=== PATIENT | male | born 1940 | race Caucasian/White ===

== ENCOUNTER → 2017-03-29 | Outpatient (CLI) | payer MEDICARE, BC ==
[~2017-03-29] MED LIST: ACET500 PO; ACETASOL; AMLO10 PO; AMLO5; AMYLIPPROE PO; ARTTEAOPSO RIGHTEYE; ASPI81EC; ASPI81EC PO; Acidophilus La100 GM PO; BIOTIN; Bacid1 EACH PO; CYCL10 PO; DULO30; DULO60 PO; EZET10; FISH1000 PO; FLUT.05NI; GABA300; GABA600 PO; GABA800 PO; HYDACE10B PO; HYDACE5 PO; HYDCHL25; IBUP200 PO; IBUP400 PO; INSUASPI; INSUASPI SC; INSUASPI SUBQ; INSULANI; INSULANI SC; INSULANI SUBQ; INSULANPEN SC; KETO5OP BOTHEYES; LEVFLO500 PO; LISI20; LISI20 PO; LISI5 PO; MECL12.5 PO; MECL25 PO; MEGA RED; META800 PO; METF500; METF500 PO; METF500C PO; METO25ER; METO50 PO; METR500 PO; MOME.1TC TOP; NAPR250 PO; NITR.4SL SL; Norco 5-325 Ta1 EACH PO; OLOP.1OPSO OD; OMEG1CAP30 PO; OMEP20ER PO; POLY500 PO; POTA10T PO; PSEU120ER; ROSU5 PO; SPIHYD PO; SPIR25 PO; TAMS.4ER PO; TERA5 PO; TORSE20 PO; TURMERIC500 MG PO
== END ==
LOC: LAB SHORT 16:54 → LAB 16:54
DX: D48.5 Neoplasm of uncertain behavior of skin (principal)
CPT/HCPCS: 88305

== ENCOUNTER 2017-06-14 23:25 | Emergency (ER) | payer OTHER, MEDICARE, BC ==
[~2017-06-14] VITALS: Ht 170.2 cm; Wt 97.5 kg
== END 2017-06-15 00:40 | disposition home or self-care (01) ==
LOC: ER 23:25
DX: M76.811 Anterior tibial syndrome, right leg (principal); I10 Essential (primary) hypertension; E11.9 Type 2 diabetes mellitus without complications; E78.00 Pure hypercholesterolemia, unspecified; I25.10 Atherosclerotic heart disease of native coronary artery without angina pectoris; Z88.7 Allergy status to serum and vaccine; Z79.899 Other long term (current) drug therapy; Z79.82 Long term (current) use of aspirin; Z79.4 Long term (current) use of insulin; Z87.891 Personal history of nicotine dependence
CPT/HCPCS: 96372; 99284; J1885; J3010

== ENCOUNTER 2018-05-17 05:07 | Observation (INO) | payer MEDICARE, BC ==
[~2018-05-17] VITALS: Ht 172.7 cm; Wt 104.3 kg
[~2018-05-17 05:07] MED LIST changes: +ALLERGY EYE DROP5 ML BOTHEYES; +Aspirin EC81 MG PO; -INSUASPI SUBQ; -LISI5 PO; +Novolog Fl100 UNIT/1 SC; +Prinivil10 MG PO
[2018-05-17 05:49] LABS: BASOPHILS ABSOLUTE AUTO 0.03 K/mm3 (0.00-0.23); BASOPHILS PERCENT AUTO 0 % (0-2); EOSINOPHILS ABSOLUTE AUTO 0.39 K/mm3 (0.00-0.68); EOSINOPHILS PERCENT AUTO 5 % (0-6); Hematocrit 33.6 % (37.0-53.0); Hemoglobin 10.4 g/dL (13.5-17.5); IMMATURE GRAN ABSOLUTE AUTO 0.04 K/mm3 (0.00-0.10); IMMATURE GRAN PERCENT AUTO 1 % (0-1); LYMPHOCYTES ABSOLUTE AUTO 1.65 K/mm3 (0.84-5.20); LYMPHOCYTES PERCENT AUTO 19 % (21-46); MONOCYTES ABSOLUTE AUTO 0.61 K/mm3 (0.16-1.47); MONOCYTES PERCENT AUTO 7 % (4-13); Mean Corpuscular HGB 27.7 pg (26.0-34.0); Mean Corpuscular Volume 89 fL (80-100); Mean Platelet Volume 11.8 fL (9.1-12.4); NEUTROPHILS ABSOLUTE AUTO 5.95 K/mm3 (1.96-9.15); NEUTROPHILS PERCENT AUTO 69 % (41-73); Platelet Count 168 K/mm3 (150-400); RDW Coefficient Variation 14.7 % (11.7-14.2); RDW Standard Deviation 48.2 fL (35.1-46.3); Red Blood Cell Count 3.76 M/mm3 (4.30-5.90); White Blood Cell Count 8.67 K/mm3 (4.00-11.30)
[2018-05-17 06:05] LABS: Alanine Aminotransfer (ALT/SGP 22 U/L (12-78); Alk Phos 93 U/L (50-136); Anion Gap 5 mmol/L (6-16); Aspartate Aminotrans (AST/SGOT 13 U/L (12-37); Bilirubin, Total 0.3 mg/dL (0.1-1.0); Blood Urea Nitrogen 32 mg/dL (8-24); Bun/Creatinine Ratio 42.6 (12.0-20.0); CO2, Blood 30 mmol/L (21-32); Calcium, Blood 8.1 mg/dL (8.5-10.1); Chloride, Blood 109 mmol/L (98-108); Creatinine, Blood 0.75 mg/dL (0.60-1.20); Glomerular Filtration Rate >60 (60-); Glucose, Blood 189 mg/dL (70-99); Potassium, Blood 3.9 mmol/L (3.5-5.5); Sodium, Blood 144 mmol/L (136-145)
[2018-05-17 06:49] LABS: International Normalized Ratio 1.06; Prothrombin Time Results 11.2 Sec (9.7-11.5)
[2018-05-17 12:45] LABS: Hematocrit 31.5 % (37.0-53.0); Hemoglobin 9.8 g/dL (13.5-17.5)
--- NOTE | 2018-05-17 13:26 | NUR ---
INTO [facility] VIA [employer]. PT REPORTS 6/10 GENERALIZED PAIN. HISTORY AND ALLERGIES REVIEWED. NPO STATUS CONFIRMED. LUNGS CLEAR TO AUSCULTATION. SATS>90% ON RA.
--- NOTE | 2018-05-17 13:34 | NUR ---
05/17/18 1334 Joel Bear History, Chart, Medications and Allergies reviewed before start of procedure.MONITOR INTACT WITH CONTINUOUS PULSE OXIMETRY AND INTERMITTENT BP.3-LEAD EKG REVIEWED WITH PHYSICIAN PRIOR TO START OF PROCEDURE.O2 VIA N/C INTACT THROUGHOUT SEDATION/PROCEDURE. Patient confirms NPO status and agrees with scheduled surgery.See Anesthesia record.
--- NOTE | 2018-05-17 17:31 | NUR ---
SHIFT SUMMARY PATIENT A&O X4, INDEPENDENT TO THE BATHROOM. DENIES ANY PAIN, SOB, OR NAUSEA. ARRIVED AT 1446 FROM DAY SURG. VSS. POST OP VS STARTED. IS AT THE BEDSIDE. NO ACUTE CHANGES THIS SHIFT. RN WILL CONTINUE TO MONITOR.
[2018-05-17 19:00] LABS: Hematocrit 30.7 % (37.0-53.0); Hemoglobin 9.6 g/dL (13.5-17.5)
[2018-05-17] MEDS ORDERED: Motion Sickness25 M5 PO (20:42)
[2018-05-17] MEDS ORDERED: TAMS.4ER PO (20:44)
[2018-05-17] MEDS ORDERED: CHOL10002 PO (21:03)
[2018-05-17] MEDS ORDERED: ADCIRCA20 MG PO (21:07)
[2018-05-17] MEDS ORDERED: Flunisolide25 ML (21:09)
[2018-05-17] MEDS ORDERED: Aquaphor Healin50 GM TOP (21:11)
[2018-05-17] MEDS ORDERED: [UNRECOGNIZED DRUG - SUPPLY] BOTHEYES (21:14)
--- NOTE | 2018-05-17 21:25 | NUR ---
2030 PT UP AMBULATED WITH STAFF X 1 STANDBY ASSIST AROUND ENTIRE LOOP OF HALLWAY, GAIT SLOW AND STEADY. PT DENIES PAIN OR VERTIGO.
[2018-05-18 00:47] LABS: Hematocrit 29.8 % (37.0-53.0); Hemoglobin 9.5 g/dL (13.5-17.5)
--- NOTE | 2018-05-18 04:01 | NUR ---
77 Y/O MALE RESTING COMFORTABLY IN BED WITH SPENDING NIGHT SLEEPING ON BEDSIDE SOFA (LINEN, BLANKET AND PILLOW PROVIDED BY STAFF). PT HAD NO STOOLS DURING THIS SHIFT. PT DENIES PAIN OR NAUSEA. PTS BED IN LOW POSITION WITH CALL LIGHT AT SIDE.
[2018-05-18 07:39] LABS: BASOPHILS ABSOLUTE AUTO 0.02 K/mm3 (0.00-0.23); BASOPHILS PERCENT AUTO 0 % (0-2); EOSINOPHILS ABSOLUTE AUTO 0.25 K/mm3 (0.00-0.68); EOSINOPHILS PERCENT AUTO 3 % (0-6); Hematocrit 29.2 % (37.0-53.0); Hemoglobin 9.2 g/dL (13.5-17.5); Hemoglobin 9.3 g/dL (13.5-17.5); IMMATURE GRAN ABSOLUTE AUTO 0.04 K/mm3 (0.00-0.10); IMMATURE GRAN PERCENT AUTO 1 % (0-1); LYMPHOCYTES ABSOLUTE AUTO 2.31 K/mm3 (0.84-5.20); LYMPHOCYTES PERCENT AUTO 29 % (21-46); MONOCYTES ABSOLUTE AUTO 0.57 K/mm3 (0.16-1.47); MONOCYTES PERCENT AUTO 7 % (4-13); Mean Corpuscular HGB 28.7 pg (26.0-34.0); Mean Corpuscular HGB Conc 31.8 g/dL (31.5-36.5); Mean Corpuscular Volume 90 fL (80-100); Mean Platelet Volume 11.6 fL (9.1-12.4); NEUTROPHILS ABSOLUTE AUTO 4.68 K/mm3 (1.96-9.15); NEUTROPHILS PERCENT AUTO 59 % (41-73); Platelet Count 158 K/mm3 (150-400); RDW Coefficient Variation 14.7 % (11.7-14.2); RDW Standard Deviation 48.7 fL (35.1-46.3); Red Blood Cell Count 3.24 M/mm3 (4.30-5.90); White Blood Cell Count 7.87 K/mm3 (4.00-11.30)
[2018-05-18 12:49] LABS: Hematocrit 31.3 % (37.0-53.0); Hemoglobin 9.6 g/dL (13.5-17.5)
[2018-05-18] MEDS ORDERED: ACIDOPHILUS-PE1 EACH PO (13:58)
[2018-05-18] MEDS ORDERED: OMEPRAZOLE MAGN20 MG PO (14:02)
--- NOTE | 2018-05-18 15:37 | NUR ---
DISCHARGE SUMMARY PATIENT A&O X4. INDEPENDENT IN THE ROOM. DISCHARGE INFORMATION REVIEWED. MEDICATIONS FAXED TO [facility]. IV D/C, WNL. TOOL SETTER APPRENTICE ESCORTED PATIENT OUT BY WHEELCHAIR. ALL BELONGINGS IN HAND. FAMILY AT HIS SIDE.
== END 2018-05-18 15:34 | disposition home or self-care (01) ==
LOC: ER 05:07 → ERHOLD 05:08 → MEDS 05:08 → ENPENDDIS 05-18 13:57 → MEDS 05-18 15:34
PROVIDERS: Emergency Medicine; Internal Medicine; Internal Medicine Gastroenterology; ADMIT Hospitalist
PROC: 0DJ08ZZ Inspection of Upper Intestinal Tract, Via Natural or Artificial Opening Endoscopic (ICD-10-PCS; principal; 2018-05-17 13:45)
DX: K29.70 Gastritis, unspecified, without bleeding (principal); K20.9 Esophagitis, unspecified; K29.80 Duodenitis without bleeding; K25.9 Gastric ulcer, unspecified as acute or chronic, without hemorrhage or perforation; K26.9 Duodenal ulcer, unspecified as acute or chronic, without hemorrhage or perforation; I11.0 Hypertensive heart disease with heart failure; I50.32 Chronic diastolic (congestive) heart failure; E11.9 Type 2 diabetes mellitus without complications; I25.10 Atherosclerotic heart disease of native coronary artery without angina pectoris; F32.9 Major depressive disorder, single episode, unspecified; G47.33 Obstructive sleep apnea (adult) (pediatric); E66.9 Obesity, unspecified; Z87.891 Personal history of nicotine dependence; Z88.7 Allergy status to serum and vaccine; Z79.899 Other long term (current) drug therapy; Z79.82 Long term (current) use of aspirin; Z79.4 Long term (current) use of insulin; Z68.35 Body mass index [BMI] 35.0-35.9, adult
CPT/HCPCS: 36415; 36416; 80053; 82947; 83690; 85014; 85018; 85025; 85610; 86850; 86900; 86901; 93005; 93010; 96361; 96365; 96366; 96376; 99285-25; C9113; G0378; J1815; J7030; J7120

== ENCOUNTER 2019-04-27 17:20 | Emergency (ER) | payer MEDICARE, BC ==
[~2019-04-27] VITALS: Ht 170.2 cm; Wt 93.0 kg
[~2019-04-27 17:20] MED LIST changes: +ACIDOPHILUS-PE1 EACH PO; +ADCIRCA20 MG PO; +Aquaphor Healin50 GM TOP; +CHOL10002 PO; +Flunisolide25 ML; +Motion Sickness25 M5 PO; +OMEPRAZOLE MAGN20 MG PO; +[UNRECOGNIZED DRUG - SUPPLY] BOTHEYES
== END 2019-04-27 18:12 | disposition home or self-care (01) ==
LOC: ER 17:20
DX: Z46.6 Encounter for fitting and adjustment of urinary device (principal); I10 Essential (primary) hypertension; E11.9 Type 2 diabetes mellitus without complications; E78.00 Pure hypercholesterolemia, unspecified; Z79.899 Other long term (current) drug therapy; Z87.891 Personal history of nicotine dependence
CPT/HCPCS: 99282

== ENCOUNTER 2020-04-10 12:27 | Observation (INO) | payer OTHER, MEDICARE ==
[~2020-04-10] VITALS: Ht 170.2 cm; Wt 92.2 kg
[2020-04-10 13:35] LABS: BASOPHILS ABSOLUTE AUTO 0.02 K/mm3 (0.00-0.23); BASOPHILS PERCENT AUTO 0 % (0-2); EOSINOPHILS ABSOLUTE AUTO 0.27 K/mm3 (0.00-0.68); EOSINOPHILS PERCENT AUTO 4 % (0-6); Hematocrit 47.2 % (37.0-53.0); Hemoglobin 15.5 g/dL (13.5-17.5); IMMATURE GRAN ABSOLUTE AUTO 0.03 K/mm3 (0.00-0.10); IMMATURE GRAN PERCENT AUTO 0 % (0-1); LYMPHOCYTES PERCENT AUTO 15 % (21-46); MONOCYTES ABSOLUTE AUTO 0.74 K/mm3 (0.16-1.47); MONOCYTES PERCENT AUTO 10 % (4-13); Mean Corpuscular HGB 29.3 pg (26.0-34.0); Mean Corpuscular HGB Conc 32.8 g/dL (31.5-36.5); Mean Corpuscular Volume 89 fL (80-100); NEUTROPHILS ABSOLUTE AUTO 5.22 K/mm3 (1.96-9.15); NEUTROPHILS PERCENT AUTO 71 % (41-73); Platelet Count 163 K/mm3 (150-400); RDW Coefficient Variation 13.4 % (11.7-14.2); RDW Standard Deviation 44.4 fL (35.1-46.3); Red Blood Cell Count 5.29 M/mm3 (4.30-5.90); White Blood Cell Count 7.38 K/mm3 (4.00-11.30)
[2020-04-10] MEDS ORDERED: FURO20 PO ×2 (14:27→15:39)
[2020-04-10 14:41] LABS: Base Excess Venous 7.4 mmol/L; Bicarbonate Venous 28.4 mmol/L (24.0-30.0); PCO2 Venous 59.1 mmHg (38-42); PO2 Venous 32.3 mmHg (38-42); pH Blood Venous 7.36 (7.34-7.37)
[2020-04-10 14:48] LABS: Alanine Aminotransfer (ALT/SGP 21 U/L (12-78); Albumin, Blood 3.2 g/dL (3.4-5.0); Alk Phos 136 U/L (50-136); Anion Gap 3 mmol/L (6-16); Aspartate Aminotrans (AST/SGOT 14 U/L (12-37); Bilirubin, Total 0.3 mg/dL (0.1-1.0); Blood Urea Nitrogen 10 mg/dL (8-24); Bun/Creatinine Ratio 12.4 (12.0-20.0); CO2, Blood 31 mmol/L (21-32); Calcium, Blood 8.1 mg/dL (8.5-10.1); Chloride, Blood 107 mmol/L (98-108); Creatinine, Blood 0.81 mg/dL (0.60-1.20); Globulin, Blood 3.1 g/dL (2.2-4.0); Glomerular Filtration Rate >60 (60-); Glucose, Blood 90 mg/dL (70-99); Potassium, Blood 3.6 mmol/L (3.5-5.5); Sodium, Blood 141 mmol/L (136-145); Total Protein, Blood 6.3 g/dL (6.4-8.2); Troponin I <0.015 ng/mL (0.000-0.040)
[2020-04-10] MEDS ORDERED: DULO60 PO (15:34)
[2020-04-10] MEDS ORDERED: AMLO10 PO (15:34)
[2020-04-10] MEDS ORDERED: BASAGLAR K100 UNIT/1 SC (15:35)
[2020-04-10] MEDS ORDERED: NOVOLOG FL100 UNIT/3 SC (15:35)
[2020-04-10] MEDS ORDERED: GABAPENTIN600 MG PO (15:35)
[2020-04-10] MEDS ORDERED: ARTIFICIAL TEAR15 M2 BOTHEYES (15:36)
[2020-04-10] MEDS ORDERED: METF500 PO (15:36)
[2020-04-10] MEDS ORDERED: OMEP20ER PO (15:36)
[2020-04-10] MEDS ORDERED: Prinivil10 MG PO (15:36)
[2020-04-10] MEDS ORDERED: ROSU5 PO (15:37)
[2020-04-10] MEDS ORDERED: POTA10T PO (15:37)
[2020-04-10] MEDS ORDERED: ASCO500 PO (15:38)
[2020-04-10] MEDS ORDERED: Cialis20 MG PO (15:38)
[2020-04-10] MEDS ORDERED: TAMS.4ER PO (15:38)
[2020-04-10] MEDS ORDERED: DAILY-VITE1 EACH PO (15:38)
[2020-04-10] MEDS ORDERED: THERA-D2000 UNIT PO ×2 (15:38→18:25)
--- NOTE | 2020-04-10 17:25 | NUR ---
RECIEVED REPORT FROM DADA Jeffries, RN TELEMETRY. PATIENT TO BE TRANSFERED TO ROOM 359.
[2020-04-10] MEDS ORDERED: ACET500 PO (18:08)
[2020-04-10] MEDS ORDERED: FLUN25SP (18:15)
[2020-04-10] MEDS ORDERED: PROBIOTIC1 EA13 PO (18:22)
[2020-04-10] MEDS ORDERED: Saw Palmetto160 MG PO (18:23)
[2020-04-10] MEDS ORDERED: TURMERIC500 M2 PO (18:24)
--- NOTE | 2020-04-10 18:39 | NUR ---
PATIENT ARRIVED TO ROOM 359 BY WHEEL CHAIR AT 1732. PATIENT TRANSFERED SELF TO HOSPITAL BED INDEPENDENTLY. ADMISSION ASSESSMENT, H&P AND MED REC COMPLETED WITH THE ASSISTANCE OF THE PATIENT. PATIENT IS ALERT AND ORIENTED. VITALS STABLE. DENIES CHEST PAIN/PRESSURE AT THIS TIME. INDEPENDENT IN HIS ROOM. TELE HAS BEEN PLACED; AWAITING FOR STRIP INTERPRETATION FROM [employer]FE TEAM MEMBER. PATIENT IN ROOM EATING DINNER AT THIS TIME. SON AT BEDSIDE. CALL LIGHT WITHIN REACH.
--- NOTE | 2020-04-11 05:46 | NUR ---
SHIFT SUMMARY: PATIENT IS A&OX4, NO REPORTS OF CHEST PAIN. TROPONIN RESULTS ARE WNL. VSS. TELEMETRY SHOWS SR WITH BBB, IN AND OUT OF SINUS ARYTHMIA VS PAC'S. PATIENT REPORTED TAKING PRILOSEC 20 MG BID, WITH BREAKFAST AND DINNER. THIS IS ONLY ORDERED Q DAY. MERA PARRA HOISTER WAS NOTIFIED AND ORDER WAS OBTAINED FOR BID. PATIENT HAS BEEN NPO SINCE 0400 FOR STRESS TEST TODAY.
--- NOTE | 2020-04-11 16:48 | NUR ---
PT IS A/OX3, PLEASANT AND COOPERATIVE, THE PT IS UP IND IN HIS ROOM ,THE PT UNDERWENT A 1 DAY PROTOCOL STRESS TEST TODAY AND HAS TOLERATED THE TEST WELL, RESULTS ARE PENDING AT THIS TIME, PT DENIED ANY PAIN, SOB OR N/V TODAY, FAMILY WAS IN TO SEE THE PT, CALL LIGHT IN REACH WILL CONTINUE TO MONITOR AND ASSESS FOR CHANGES
[2020-04-11] MEDS ORDERED: ASPI81CH PO (17:22)
[2020-04-11] MEDS ORDERED: ASMANEX220 MC8 INH (17:24)
[2020-04-11] MEDS ORDERED: ATOR20 PO (17:28)
--- NOTE | 2020-04-11 19:49 | NUR ---
DISCHARGE: PATIENT HAS BEEN DISCHARGED. SL IS REMOVED, TELEMETRY REMOVED AND AWAITING SON TO COME FOR RIDE HOME.
== END 2020-04-11 19:45 | disposition home or self-care (01) ==
LOC: ER 12:27 → MEDS 12:28 → ER 17:28 → MEDS 17:34
PROVIDERS: Emergency Medicine; ADMIT Hospitalist
DX: R07.9 Chest pain, unspecified (principal); I25.10 Atherosclerotic heart disease of native coronary artery without angina pectoris; E11.9 Type 2 diabetes mellitus without complications; I11.0 Hypertensive heart disease with heart failure; I50.32 Chronic diastolic (congestive) heart failure; F32.9 Major depressive disorder, single episode, unspecified; G47.30 Sleep apnea, unspecified; E66.9 Obesity, unspecified; Z87.891 Personal history of nicotine dependence; Z79.4 Long term (current) use of insulin
CPT/HCPCS: 36415; 71046; 78452; 80053; 82803; 82947; 83690; 83880; 84484; 85025; 93005; 93010; 93017; 99285-25; A9270; A9500; G0378; J2785

== ENCOUNTER → 2021-05-03 | Outpatient (CLI) | payer MEDICARE ==
[~2021-05-03] MED LIST changes: +ARTIFICIAL TEAR15 M2 BOTHEYES; +ASCO500 PO; +ASMANEX220 MC8 INH; +ASPI81CH PO; +ATOR20 PO; +BASAGLAR K100 UNIT/1 SC; +Cialis20 MG PO; +DAILY-VITE1 EACH PO; +FLUN25SP; +FURO20 PO; +GABAPENTIN600 MG PO; +NOVOLOG FL100 UNIT/3 SC; +PROBIOTIC1 EA13 PO; +Saw Palmetto160 MG PO; +THERA-D2000 UNIT PO; +TURMERIC500 M2 PO
== END | disposition home or self-care (01) ==
LOC: LAB SHORT 12:43
DX: J02.9 Acute pharyngitis, unspecified (principal)
CPT/HCPCS: 87077; 87081; 87185

== ENCOUNTER 2022-04-19 11:28 | Emergency (ER) | payer OTHER ==
[~2022-04-19] VITALS: Ht 170.2 cm; Wt 80.7 kg
[2022-04-19 12:04] LABS: BASOPHILS ABSOLUTE AUTO 0.01 K/mm3 (0.00-0.23); BASOPHILS PERCENT AUTO 0 % (0-2); EOSINOPHILS ABSOLUTE AUTO 0.25 K/mm3 (0.00-0.68); EOSINOPHILS PERCENT AUTO 4 % (0-6); Hematocrit 40.7 % (37.0-53.0); Hemoglobin 13.5 g/dL (13.5-17.5); IMMATURE GRAN ABSOLUTE AUTO 0.02 K/mm3 (0.00-0.10); IMMATURE GRAN PERCENT AUTO 0 % (0-1); LYMPHOCYTES ABSOLUTE AUTO 1.32 K/mm3 (0.84-5.20); LYMPHOCYTES PERCENT AUTO 23 % (21-46); MONOCYTES ABSOLUTE AUTO 0.37 K/mm3 (0.16-1.47); MONOCYTES PERCENT AUTO 6 % (4-13); Mean Corpuscular HGB 28.7 pg (26.0-34.0); Mean Corpuscular HGB Conc 33.2 g/dL (31.5-36.5); Mean Corpuscular Volume 87 fL (80-100); Mean Platelet Volume 11.9 fL (9.1-12.4); NEUTROPHILS ABSOLUTE AUTO 3.87 K/mm3 (1.96-9.15); NEUTROPHILS PERCENT AUTO 66 % (41-73); Platelet Count 164 K/mm3 (150-400); RDW Coefficient Variation 13.8 % (11.7-14.2); RDW Standard Deviation 43.9 fL (35.1-46.3); White Blood Cell Count 5.84 K/mm3 (4.00-11.30)
[2022-04-19 12:29] LABS: Albumin, Blood 3.5 g/dL (3.4-5.0); Albumin/Globulin Ratio 1.1 (0.8-1.8); Bilirubin, Total 0.4 mg/dL (0.1-1.0); Bun/Creatinine Ratio 24.9 (12.0-20.0); Calcium, Blood 8.8 mg/dL (8.5-10.1); Creatinine, Blood 0.72 mg/dL (0.60-1.20); Globulin, Blood 3.2 g/dL (2.2-4.0); Potassium, Blood 3.8 mmol/L (3.5-5.5); Total Protein, Blood 6.7 g/dL (6.4-8.2)
[2022-04-19 13:39] LABS: Source, Urine Clean Catch
[2022-04-19 13:43] LABS: Bilirubin, Urine Neg (Neg); Blood, Urine 1+ (Neg); Color, Urine Yellow (P-Yellow); Glucose Qualitative, Urine 4+ (Neg); Ketones, Urine Neg (Neg); Leukocyte Esterase, Urine Neg (Neg); Nitrite, Urine Neg (Neg); Protein, Urine 2+ (Neg); Urobilinogen, Urine NORM (Normal); pH, Urine 6.5 (5.0-8.0)
[2022-04-19 13:59] LABS: Appearance, Urine Hazy (Clear)
[2022-04-19 14:00] LABS: Bacteria Few /hpf; Hyaline Casts 0-2 /lpf (0-2); Mucus Light (0-Heavy); Squamous Epithelial Cells Rare /hpf (Few); White Blood Cells, Urine 0-2 /hpf (0-5)
[2022-04-19] MEDS ORDERED: NOVOLOG100 UNIT/3 SC (14:19)
[2022-04-19] MEDS ORDERED: INSULANI SC (14:19)
[2022-04-19] MEDS ORDERED: INSULIN SYRING SC (14:19)
== END 2022-04-19 15:12 | disposition home or self-care (01) ==
LOC: ER 11:28
PROVIDERS: Emergency Medicine
DX: E11.65 Type 2 diabetes mellitus with hyperglycemia (principal); Z88.7 Allergy status to serum and vaccine; Z79.899 Other long term (current) drug therapy; Z79.84 Long term (current) use of oral hypoglycemic drugs; Z79.4 Long term (current) use of insulin; Z79.82 Long term (current) use of aspirin; I10 Essential (primary) hypertension; E78.00 Pure hypercholesterolemia, unspecified; G47.30 Sleep apnea, unspecified; Z87.891 Personal history of nicotine dependence
CPT/HCPCS: 36415; 80053; 81001; 82947; 85025; 96360; 99284-25; J1815; J7030

== ENCOUNTER 2022-05-25 16:22 | Emergency (ER) | payer OTHER ==
[~2022-05-25] VITALS: Ht 170.2 cm; Wt 81.7 kg
[~2022-05-25 16:22] MED LIST changes: +INSULIN SYRING SC; +NOVOLOG100 UNIT/3 SC
[2022-05-25 16:49] LABS: BASOPHILS ABSOLUTE AUTO 0.02 K/mm3 (0.00-0.23); BASOPHILS PERCENT AUTO 0 % (0-2); EOSINOPHILS PERCENT AUTO 5 % (0-6); Hematocrit 38.4 % (37.0-53.0); Hemoglobin 12.5 g/dL (13.5-17.5); IMMATURE GRAN ABSOLUTE AUTO 0.01 K/mm3 (0.00-0.10); IMMATURE GRAN PERCENT AUTO 0 % (0-1); LYMPHOCYTES ABSOLUTE AUTO 1.41 K/mm3 (0.84-5.20); LYMPHOCYTES PERCENT AUTO 23 % (21-46); MONOCYTES PERCENT AUTO 7 % (4-13); Mean Corpuscular HGB 29.2 pg (26.0-34.0); Mean Corpuscular HGB Conc 32.6 g/dL (31.5-36.5); Mean Corpuscular Volume 90 fL (80-100); Mean Platelet Volume 11.6 fL (9.1-12.4); NEUTROPHILS ABSOLUTE AUTO 4.06 K/mm3 (1.96-9.15); NEUTROPHILS PERCENT AUTO 66 % (41-73); Platelet Count 153 K/mm3 (150-400); RDW Coefficient Variation 13.7 % (11.7-14.2); Red Blood Cell Count 4.28 M/mm3 (4.30-5.90)
[2022-05-25 17:17] LABS: Albumin, Blood 3.7 g/dL (3.4-5.0); Albumin/Globulin Ratio 1.2 (0.8-1.8); Bilirubin, Total 0.3 mg/dL (0.1-1.0); Bun/Creatinine Ratio 18.4 (12.0-20.0); Calcium, Blood 9.3 mg/dL (8.5-10.1); Creatinine, Blood 0.76 mg/dL (0.60-1.20); Globulin, Blood 3.1 g/dL (2.2-4.0); Potassium, Blood 3.8 mmol/L (3.5-5.5); Total Protein, Blood 6.8 g/dL (6.4-8.2)
== END 2022-05-25 18:38 | disposition home or self-care (01) ==
LOC: ER 16:22
PROVIDERS: Physician Assistant
DX: R07.89 Other chest pain (principal); I10 Essential (primary) hypertension; E11.9 Type 2 diabetes mellitus without complications; E78.00 Pure hypercholesterolemia, unspecified; I25.10 Atherosclerotic heart disease of native coronary artery without angina pectoris; G47.30 Sleep apnea, unspecified; Z79.899 Other long term (current) drug therapy; Z79.4 Long term (current) use of insulin; Z79.84 Long term (current) use of oral hypoglycemic drugs; Z79.82 Long term (current) use of aspirin; Z88.7 Allergy status to serum and vaccine; Z87.891 Personal history of nicotine dependence; Z95.5 Presence of coronary angioplasty implant and graft
CPT/HCPCS: 71046; 76705; 80053; 83690; 84484; 85025; 93005; 93010; 99285-25

== ENCOUNTER 2022-07-01 12:10 | Observation (INO) | payer OTHER ==
[2022-07-01] VITALS (9 sets, daily range): BP systolic 127–153; BP diastolic 65–81
[~2022-07-01] VITALS: Ht 170.2 cm; Wt 85.0 kg
[2022-07-01 12:25] LABS: Calcium, Ionized (POC) 1.07 mmol/L (1.10-1.46); Chloride (POC) 102 mmol/L (98-108); Creatinine (POC) 0.8 mg/dL (0.8-1.3); Glucose (ISTAT POC) 169 mg/dL (70-99); Hemoglobin (POC) 13.6 g/dL (13.5-17.5); Potassium (POC) 3.5 mmol/L (3.5-5.5); Sodium (POC) 141 mmol/L (135-148); Total CO2 (POC) 26 mmol/L (21-32)
[2022-07-01 12:36] LABS: BASOPHILS ABSOLUTE AUTO 0.03 K/mm3 (0.00-0.23); BASOPHILS PERCENT AUTO 0 % (0-2); EOSINOPHILS ABSOLUTE AUTO 0.27 K/mm3 (0.00-0.68); EOSINOPHILS PERCENT AUTO 3 % (0-6); Hematocrit 37.9 % (37.0-53.0); Hemoglobin 12.7 g/dL (13.5-17.5); IMMATURE GRAN ABSOLUTE AUTO 0.04 K/mm3 (0.00-0.10); IMMATURE GRAN PERCENT AUTO 0 % (0-1); LYMPHOCYTES ABSOLUTE AUTO 1.55 K/mm3 (0.84-5.20); LYMPHOCYTES PERCENT AUTO 16 % (21-46); MONOCYTES ABSOLUTE AUTO 0.61 K/mm3 (0.16-1.47); MONOCYTES PERCENT AUTO 6 % (4-13); Mean Corpuscular HGB Conc 33.5 g/dL (31.5-36.5); Mean Corpuscular Volume 89 fL (80-100); Mean Platelet Volume 11.3 fL (9.1-12.4); NEUTROPHILS ABSOLUTE AUTO 7.29 K/mm3 (1.96-9.15); NEUTROPHILS PERCENT AUTO 75 % (41-73); Platelet Count 127 K/mm3 (150-400); RDW Coefficient Variation 14.2 % (11.7-14.2); RDW Standard Deviation 46.4 fL (35.1-46.3); Red Blood Cell Count 4.24 M/mm3 (4.30-5.90); White Blood Cell Count 9.79 K/mm3 (4.00-11.30)
[2022-07-01 12:55] LABS: Albumin, Blood 3.6 g/dL (3.4-5.0); Albumin/Globulin Ratio 1.2 (0.8-1.8); Bilirubin, Total 0.3 mg/dL (0.1-1.0); Bun/Creatinine Ratio 21.4 (12.0-20.0); Creatinine, Blood 0.7 mg/dL (0.60-1.20); Globulin, Blood 3.1 g/dL (2.2-4.0); Potassium, Blood 3.4 mmol/L (3.5-5.5); Total Protein, Blood 6.7 g/dL (6.4-8.2)
[2022-07-01 12:59] LABS: International Normalized Ratio 1.03; Prothrombin Time Results 10.8 Sec (9.7-11.5)
[2022-07-01] MEDS ORDERED: AMLO10 PO (13:06)
[2022-07-01] MEDS ORDERED: DULO60 PO (13:07)
[2022-07-01] MEDS ORDERED: FINA5 PO (13:07)
[2022-07-01] MEDS ORDERED: GABA100 PO (13:07)
[2022-07-01] MEDS ORDERED: NOVOLOG100 UNIT/2 INJ (13:08)
[2022-07-01] MEDS ORDERED: BASAGLAR K100 UNIT/1 SC (13:08)
[2022-07-01] MEDS ORDERED: ROSU5 PO (13:09)
[2022-07-01] MEDS ORDERED: LISI20 PO (13:09)
[2022-07-01] MEDS ORDERED: METF500 PO (13:09)
[2022-07-01] MEDS ORDERED: TAMS.4ER PO (13:10)
[2022-07-01 17:13] LABS: Cholesterol 158 mg/dL (50-200); HDL Cholesterol 53 mg/dL (>39); LDL/HDL RATIO 1.8; Low Density Lipoprotein Chol 93 mg/dL (0-110); Triglycerides 60 mg/dL (30-160); Very Low Density Lipoprot Chol 12 mg/dL (6-32)
[2022-07-01 17:17] LABS: Thyroid Stimulating Hormone 0.824 uIU/mL (0.360-4.800)
--- NOTE | 2022-07-01 18:31 | NUR ---
PT ARRIVED TO THE UNIT VIA BED FROM THE [facility] POST ANGIO. PER REPORT NO HEART WAS CLEAR. RIGHT RADIAL ACCESS SITE NOW FULLY RECOVERED CLEAR DRESSING IN PLACE. PT IS ALERT AND ORIENTED X4, [place]. CAN MOVE INDEPENDENTLY IN BED, MINIMAL ASSIST FOR TRANSFERS. FAMILY WAS AT THE BEDSIDE DURING THE TRANSFER ABLE TO TALK TO THE PROVIDER DR RADER. MEDICATIONS WERE RESUMED AND RECONCILED. VITALS HRR SR BBB 90'S, SBP 130-150'S, SATS ABOVE 95% ON RA, AFEBRILE. PT STILL HAS SOME MILD PRESSURE POST ANGIO 3/10 PAIN TOLERABLE PER PT. NO OTHER COMPLAINS AT THIS TIME, PT ABLE TO MAKE NEEDS KNOWN CALL LIGHTS IN REACH WILL REPORT TO ONCOMING SHIFT
[2022-07-02] VITALS: BP 165/72
[2022-07-02 03:35] VITALS: BP 148/73
[2022-07-02 04:06] LABS: BASOPHILS ABSOLUTE AUTO 0.01 K/mm3 (0.00-0.23); BASOPHILS PERCENT AUTO 0 % (0-2); EOSINOPHILS ABSOLUTE AUTO 0.17 K/mm3 (0.00-0.68); EOSINOPHILS PERCENT AUTO 2 % (0-6); Hemoglobin 12.8 g/dL (13.5-17.5); IMMATURE GRAN ABSOLUTE AUTO 0.05 K/mm3 (0.00-0.10); IMMATURE GRAN PERCENT AUTO 1 % (0-1); LYMPHOCYTES PERCENT AUTO 12 % (21-46); MONOCYTES PERCENT AUTO 8 % (4-13); Mean Corpuscular HGB 30.3 pg (26.0-34.0); Mean Corpuscular HGB Conc 34.6 g/dL (31.5-36.5); Mean Corpuscular Volume 88 fL (80-100); Mean Platelet Volume 11.7 fL (9.1-12.4); NEUTROPHILS ABSOLUTE AUTO 8.35 K/mm3 (1.96-9.15); NEUTROPHILS PERCENT AUTO 78 % (41-73); Platelet Count 140 K/mm3 (150-400); RDW Coefficient Variation 14.1 % (11.7-14.2); RDW Standard Deviation 45.2 fL (35.1-46.3); Red Blood Cell Count 4.22 M/mm3 (4.30-5.90); White Blood Cell Count 10.68 K/mm3 (4.00-11.30)
[2022-07-02 04:27] LABS: Albumin, Blood 3.3 g/dL (3.4-5.0); Albumin/Globulin Ratio 1.1 (0.8-1.8); Bilirubin, Total 0.5 mg/dL (0.1-1.0); Bun/Creatinine Ratio 20.7 (12.0-20.0); Calcium, Blood 7.9 mg/dL (8.5-10.1); Creatinine, Blood 0.58 mg/dL (0.60-1.20); Potassium, Blood 3.3 mmol/L (3.5-5.5); Total Protein, Blood 6.3 g/dL (6.4-8.2)
--- NOTE | 2022-07-02 06:21 | NUR ---
SHIFT SUMMARY PATIENT ALERT AND ORIENTED X4. INDEPENDENT IN ROOM. SPO2 >90% ON ROOM AIR. VITAL SIGNS STABLE, NORMAL SINUS RHYTHM ON TELEMETRY. NO BLEEDING OR BRUSING NOTED FROM ANGIOGRAM SITE. NO ACUTE ISSUES NOTED OVERNIGHT. WILL CONTINUE TO MONITOR. CALL LIGHT WITHIN REACH.
[2022-07-02 08:05] VITALS: BP 165/69
--- NOTE | 2022-07-02 08:15 | NUR ---
MORNING NOTE PT AWAKES EASILY & GIVEN BREAKFAST. VS & ASSESSMENT CHARTED. ONLY C/O ALLERGIES CAUSING SINUS ISSUES. DENIES CP OR N/T. MD ROUNDS AT THIS TIME & PT IS EXCITED TO HEAR HE WILL GO HOME.
[2022-07-02] MEDS ORDERED: ATOR40TA PO (11:12)
[2022-07-02] MEDS ORDERED: ASPI81CH PO (11:13)
[2022-07-02] MEDS ORDERED: METO25 PO (11:13)
[2022-07-02] MEDS ORDERED: NITR.4SL SL (11:16)
--- NOTE | 2022-07-02 12:09 | NUR ---
ESCORTED OUT VIA WC
== END 2022-07-02 12:12 | disposition home or self-care (01) ==
LOC: ER 12:10 → ICUW 12:51 → PCU 12:51 → ER 12:51 → ICUW 12:51 → PCU 12:51 → ICUW 13:55 → PCU 15:45
PROVIDERS: Emergency Medicine; Family Medicine; ADMIT Internal Medicine
DX: R07.89 Other chest pain (principal); I16.1 Hypertensive emergency; I25.10 Atherosclerotic heart disease of native coronary artery without angina pectoris; I12.9 Hypertensive chronic kidney disease with stage 1 through stage 4 chronic kidney disease, or unspecified chronic kidney disease; E11.22 Type 2 diabetes mellitus with diabetic chronic kidney disease; N18.9 Chronic kidney disease, unspecified; E78.5 Hyperlipidemia, unspecified; M19.90 Unspecified osteoarthritis, unspecified site; G47.30 Sleep apnea, unspecified; M54.30 Sciatica, unspecified side; F32.9 Major depressive disorder, single episode, unspecified; N40.0 Benign prostatic hyperplasia without lower urinary tract symptoms; E66.9 Obesity, unspecified; Z68.28 Body mass index [BMI] 28.0-28.9, adult; Z87.891 Personal history of nicotine dependence; Z88.7 Allergy status to serum and vaccine; Z79.4 Long term (current) use of insulin; Z79.899 Other long term (current) drug therapy
CPT/HCPCS: 36415; 71045; 76937; 80047; 80053; 80061; 82947; 83036; 83880; 84443; 84484; 85014; 85025; 85610; 85730; 93005; 93010; 93306; 93454; 94760; 96374-59; 99152; 99153; 99285-25; A9270; C1769; C1887; C1894; J1644; J1815; J2250; J3010; J7030; J7050; Q9967

== ENCOUNTER 2022-07-09 18:30 | Inpatient (IN) | payer OTHER ==
[~2022-07-09] VITALS: Ht 170.2 cm; Wt 89.2 kg
[~2022-07-09 18:30] MED LIST changes: +ATOR40TA PO; +FINA5 PO; +GABA100 PO; +METO25 PO; +NOVOLOG100 UNIT/2 INJ
[2022-07-09 19:06] LABS: BASOPHILS ABSOLUTE AUTO 0.02 K/mm3 (0.00-0.23); BASOPHILS PERCENT AUTO 0 % (0-2); EOSINOPHILS ABSOLUTE AUTO 0.02 K/mm3 (0.00-0.68); EOSINOPHILS PERCENT AUTO 0 % (0-6); Hemoglobin 11.3 g/dL (13.5-17.5); IMMATURE GRAN ABSOLUTE AUTO 0.08 K/mm3 (0.00-0.10); IMMATURE GRAN PERCENT AUTO 1 % (0-1); LYMPHOCYTES ABSOLUTE AUTO 1.58 K/mm3 (0.84-5.20); LYMPHOCYTES PERCENT AUTO 10 % (21-46); MONOCYTES ABSOLUTE AUTO 1.31 K/mm3 (0.16-1.47); MONOCYTES PERCENT AUTO 9 % (4-13); Mean Corpuscular HGB 29.7 pg (26.0-34.0); Mean Corpuscular HGB Conc 33.2 g/dL (31.5-36.5); Mean Corpuscular Volume 90 fL (80-100); Mean Platelet Volume 11.1 fL (9.1-12.4); NEUTROPHILS ABSOLUTE AUTO 12.15 K/mm3 (1.96-9.15); NEUTROPHILS PERCENT AUTO 80 % (41-73); Platelet Count 164 K/mm3 (150-400); RDW Standard Deviation 46.2 fL (35.1-46.3); White Blood Cell Count 15.16 K/mm3 (4.00-11.30)
[2022-07-09 19:26] LABS: Albumin/Globulin Ratio 0.9 (0.8-1.8); Bilirubin, Total 0.3 mg/dL (0.1-1.0); Bun/Creatinine Ratio 19.8 (12.0-20.0); Calcium, Blood 8.1 mg/dL (8.5-10.1); Creatinine, Blood 1.01 mg/dL (0.60-1.20); Globulin, Blood 3.4 g/dL (2.2-4.0); Potassium, Blood 3.8 mmol/L (3.5-5.5); Total Protein, Blood 6.4 g/dL (6.4-8.2)
[2022-07-09 22:37] VITALS: BP 144/81
[2022-07-10 00:01] LABS: Source, Urine Clean Catch
[2022-07-10 00:06] LABS: Bilirubin, Urine Neg (Neg); Blood, Urine 2+ (Neg); Glucose Qualitative, Urine Neg (Neg); Ketones, Urine 2+ (Neg); Leukocyte Esterase, Urine Neg (Neg); Nitrite, Urine Neg (Neg); Protein, Urine 3+ (Neg); Specific Gravity, Urine 1.015 (1.003-1.022); Urobilinogen, Urine NORM (Normal)
[2022-07-10 00:22] LABS: Appearance, Urine Clear (Clear); Color, Urine Yellow (P-Yellow)
[2022-07-10 00:24] LABS: Bacteria Not Seen /hpf; Granular Casts 0-2 /lpf (0); Red Blood Cells, Urine 0-2 /hpf (0-2); Squamous Epithelial Cells Not Seen /hpf (Few); White Blood Cells, Urine 0-2 /hpf (0-5)
[2022-07-10 05:37] LABS: BASOPHILS ABSOLUTE AUTO 0.02 K/mm3 (0.00-0.23); BASOPHILS PERCENT AUTO 0 % (0-2); EOSINOPHILS ABSOLUTE AUTO 0.05 K/mm3 (0.00-0.68); EOSINOPHILS PERCENT AUTO 1 % (0-6); Hematocrit 34.3 % (37.0-53.0); IMMATURE GRAN ABSOLUTE AUTO 0.07 K/mm3 (0.00-0.10); IMMATURE GRAN PERCENT AUTO 1 % (0-1); LYMPHOCYTES ABSOLUTE AUTO 1.29 K/mm3 (0.84-5.20); LYMPHOCYTES PERCENT AUTO 12 % (21-46); MONOCYTES ABSOLUTE AUTO 1.12 K/mm3 (0.16-1.47); MONOCYTES PERCENT AUTO 10 % (4-13); Mean Corpuscular HGB 29.6 pg (26.0-34.0); Mean Corpuscular HGB Conc 32.1 g/dL (31.5-36.5); Mean Corpuscular Volume 92 fL (80-100); NEUTROPHILS ABSOLUTE AUTO 8.46 K/mm3 (1.96-9.15); NEUTROPHILS PERCENT AUTO 77 % (41-73); Platelet Count 133 K/mm3 (150-400); RDW Coefficient Variation 14.2 % (11.7-14.2); RDW Standard Deviation 48.3 fL (35.1-46.3); Red Blood Cell Count 3.72 M/mm3 (4.30-5.90); White Blood Cell Count 11.01 K/mm3 (4.00-11.30)
[2022-07-10 06:18] LABS: Bun/Creatinine Ratio 21.2 (12.0-20.0); Calcium, Blood 8.2 mg/dL (8.5-10.1); Creatinine, Blood 0.8 mg/dL (0.60-1.20); Potassium, Blood 3.7 mmol/L (3.5-5.5)
--- NOTE | 2022-07-10 06:27 | NUR ---
PT ADMITTED FROM ED AROUND 2229. INDEPENDENT, AO, PLEASANT, TOLERATES THIN LIQUIDS, CONTINENT, SKIN CLEAR. ANTIBIOTICS COMPLETED SHORTLY AFTER ARRIVING. 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 DAUGHTER PRESENT ON ADMISSION, WILL BE FAMILY CONTACT.
[2022-07-10 07:58] VITALS: BP 163/68
[2022-07-10 16:11] VITALS: BP 131/76
--- NOTE | 2022-07-10 17:20 | NUR ---
SHIFT SUMMARY: Pt remains A&O this shift. Denies pain, SOB. Resp even, nonlabored on RA. Vss. SL PIV. Voiding without difficulty. Labs trending down, meds given as ordered. Call light in reach. No distress verbalized or noted. Will continue to follow.
--- NOTE | 2022-07-10 17:29 | NUR ---
Pt. is awake in bed and welcomes my visit. Pt. is pleasant and rapport is easily established. Facillitated a life review and Pt. verbalized much about his working years. Pt. displayed evidence of trust, engagement, and a lightened spirit. Pt. welcomed prayer. Prayed with Pt. Pt. verbalized gratitude for the spiritual care visit.
[2022-07-10 19:21] VITALS: BP 133/66
[2022-07-11 04:54] VITALS: BP 150/77
[2022-07-11 05:36] LABS: BASOPHILS ABSOLUTE AUTO 0.02 K/mm3 (0.00-0.23); BASOPHILS PERCENT AUTO 0 % (0-2); EOSINOPHILS PERCENT AUTO 1 % (0-6); Hematocrit 32.2 % (37.0-53.0); Hemoglobin 10.7 g/dL (13.5-17.5); IMMATURE GRAN ABSOLUTE AUTO 0.07 K/mm3 (0.00-0.10); IMMATURE GRAN PERCENT AUTO 1 % (0-1); LYMPHOCYTES ABSOLUTE AUTO 0.91 K/mm3 (0.84-5.20); LYMPHOCYTES PERCENT AUTO 10 % (21-46); MONOCYTES PERCENT AUTO 9 % (4-13); Mean Corpuscular HGB 29.6 pg (26.0-34.0); Mean Corpuscular HGB Conc 33.2 g/dL (31.5-36.5); Mean Corpuscular Volume 89 fL (80-100); Mean Platelet Volume 11.6 fL (9.1-12.4); NEUTROPHILS ABSOLUTE AUTO 7.45 K/mm3 (1.96-9.15); NEUTROPHILS PERCENT AUTO 80 % (41-73); Platelet Count 153 K/mm3 (150-400); RDW Coefficient Variation 13.9 % (11.7-14.2); RDW Standard Deviation 45.8 fL (35.1-46.3); Red Blood Cell Count 3.61 M/mm3 (4.30-5.90); White Blood Cell Count 9.35 K/mm3 (4.00-11.30)
[2022-07-11 06:11] LABS: Albumin, Blood 2.6 g/dL (3.4-5.0); Anion Gap 6 mmol/L (6-16); Blood Urea Nitrogen 11 mg/dL (8-24); Bun/Creatinine Ratio 17.2 (12.0-20.0); CO2, Blood 24 mmol/L (21-32); Chloride, Blood 109 mmol/L (98-108); Creatinine, Blood 0.64 mg/dL (0.60-1.20); Glomerular Filtration Rate 96 (60-); Glucose, Blood 157 mg/dL (70-99); Phosphorus, Blood 1.6 mg/dL (2.5-4.9); Potassium, Blood 3.4 mmol/L (3.5-5.5); Sodium, Blood 139 mmol/L (136-145)
--- NOTE | 2022-07-11 06:38 | NUR ---
SHIFT SUMMARY: PATIENT IN BED THIS EVENING SHIFT, A&O X 3, ABLE TO MAKE NEEDS KNOWN. AMBULATES IN ROOM TO BATHROOM WITHOUT ASSISTANCE. NO COMPLAINTS OF CHEST PAIN OR DISCOMFORT. NO SOB REPORTED THIS EVENING. BOWEL TONES PRESENT ALL 4 QUADRANTS, GOOD APPETITE. CONTINUES ON IV THERAPY FOR PNEUMONIA. CALL LIGHT WITHIN REACH.
[2022-07-11 08:02] VITALS: BP 136/83
[2022-07-11] MEDS ORDERED: Acetaminophen325 M1 PO (10:46)
[2022-07-11] MEDS ORDERED: VISBIOME 112.51 EACH PO (10:47)
[2022-07-11] MEDS ORDERED: AMOCLA875 PO (10:47)
--- NOTE | 2022-07-11 11:06 | NUR ---
DISCHARGE: PT D/C @ 1100 VIA [employer]OM[employer]LE WITH SON. PT ABLE TO WALK INDEPENDENTLY OUT OF BUILDING. IV TAKEN OUT BY SALINAS ZARCO. NO C/O CHEST PAIN/SOB PRIOR TO D/C. MEDICATION[facility] TO [facility]. ALL BELONGINGS SENT WITH PT.
== END 2022-07-11 11:00 | disposition home or self-care (01) | DRG 871 ==
LOC: ER 18:30 → MEDS 20:54 → ENPENDDIS 07-11 10:01 → MEDS 07-11 11:00
PROVIDERS: Emergency Medicine; Family Medicine; Nurse Practitioner Acute Care; Student in an Organized Health Care Education/Training Program; ADMIT Internal Medicine
DX: A41.9 Sepsis, unspecified organism (principal); J18.9 Pneumonia, unspecified organism; I24.8 Other forms of acute ischemic heart disease; I10 Essential (primary) hypertension; E11.9 Type 2 diabetes mellitus without complications; E78.00 Pure hypercholesterolemia, unspecified; D69.6 Thrombocytopenia, unspecified; G47.33 Obstructive sleep apnea (adult) (pediatric); D63.8 Anemia in other chronic diseases classified elsewhere; E83.39 Other disorders of phosphorus metabolism; N40.0 Benign prostatic hyperplasia without lower urinary tract symptoms; I25.10 Atherosclerotic heart disease of native coronary artery without angina pectoris; M48.00 Spinal stenosis, site unspecified; Z99.89 Dependence on other enabling machines and devices; Z98.52 Vasectomy status; Z90.49 Acquired absence of other specified parts of digestive tract; Z90.89 Acquired absence of other organs; Z98.890 Other specified postprocedural states; Z87.891 Personal history of nicotine dependence
CPT/HCPCS: 36415; 71046; 80048; 80053; 80069; 81001; 82947; 83605; 83690; 83880; 84484; 85025; 87040; 87449; 93005; 93010; 94762; 96365; 96375; 99285-25; A9270; J0456; J0696; J1650; J1815; J2543; J7030; J7050

== ENCOUNTER → 2023-08-11 | Outpatient (CLI) | payer OTHER ==
[~2023-08-11] MED LIST changes: +AMOCLA875 PO; +Acetaminophen325 M1 PO; +VISBIOME 112.51 EACH PO
[2023-08-11 17:23] LABS: BASOPHILS ABSOLUTE AUTO 0.02 K/mm3 (0.00-0.23); BASOPHILS PERCENT AUTO 0 % (0-2); EOSINOPHILS ABSOLUTE AUTO 0.25 K/mm3 (0.00-0.68); EOSINOPHILS PERCENT AUTO 3 % (0-6); Hematocrit 43.4 % (37.0-53.0); Hemoglobin 14.8 g/dL (13.5-17.5); IMMATURE GRAN ABSOLUTE AUTO 0.04 K/mm3 (0.00-0.10); IMMATURE GRAN PERCENT AUTO 1 % (0-1); LYMPHOCYTES ABSOLUTE AUTO 1.51 K/mm3 (0.84-5.20); LYMPHOCYTES PERCENT AUTO 21 % (21-46); MONOCYTES ABSOLUTE AUTO 0.42 K/mm3 (0.16-1.47); MONOCYTES PERCENT AUTO 6 % (4-13); Mean Corpuscular HGB Conc 34.1 g/dL (31.5-36.5); Mean Corpuscular Volume 91 fL (80-100); Mean Platelet Volume 12.6 fL (9.1-12.4); NEUTROPHILS ABSOLUTE AUTO 5.14 K/mm3 (1.96-9.15); NEUTROPHILS PERCENT AUTO 70 % (41-73); Platelet Count 150 K/mm3 (150-400); RDW Coefficient Variation 12.5 % (11.7-14.2); RDW Standard Deviation 41.8 fL (35.1-46.3); Red Blood Cell Count 4.78 M/mm3 (4.30-5.90); White Blood Cell Count 7.38 K/mm3 (4.00-11.30)
[2023-08-11 17:52] LABS: Albumin, Blood 4.1 g/dL (3.4-5.0); Albumin/Globulin Ratio 1.3 (0.8-1.8); Bilirubin, Total 0.4 mg/dL (0.1-1.0); Bun/Creatinine Ratio 14.8 (12.0-20.0); Calcium, Blood 8.9 mg/dL (8.5-10.1); Creatinine, Blood 0.81 mg/dL (0.60-1.20); Globulin, Blood 3.2 g/dL (2.2-4.0); Potassium, Blood 3.7 mmol/L (3.5-5.5); Total Protein, Blood 7.3 g/dL (6.4-8.2)
== END ==
LOC: LAB 15:14 → LAB SHORT 15:14
PROVIDERS: Family Medicine
DX: E11.42 Type 2 diabetes mellitus with diabetic polyneuropathy (principal); R53.83 Other fatigue
CPT/HCPCS: 80053; 83036; 85025

== ENCOUNTER → 2024-09-21 | Outpatient (CLI) | payer OTHER ==
[2024-09-21 17:34] LABS: BASOPHILS ABSOLUTE AUTO 0.03 K/mm3 (0.00-0.23); BASOPHILS PERCENT AUTO 0 % (0-2); EOSINOPHILS ABSOLUTE AUTO 0.21 K/mm3 (0.00-0.68); EOSINOPHILS PERCENT AUTO 2 % (0-6); Hematocrit 40.7 % (37.0-53.0); Hemoglobin 13.6 g/dL (13.5-17.5); IMMATURE GRAN ABSOLUTE AUTO 0.07 K/mm3 (0.00-0.10); IMMATURE GRAN PERCENT AUTO 1 % (0-1); LYMPHOCYTES ABSOLUTE AUTO 1.61 K/mm3 (0.84-5.20); LYMPHOCYTES PERCENT AUTO 18 % (21-46); MONOCYTES ABSOLUTE AUTO 0.61 K/mm3 (0.16-1.47); MONOCYTES PERCENT AUTO 7 % (4-13); Mean Corpuscular HGB Conc 33.4 g/dL (31.5-36.5); Mean Corpuscular Volume 89 fL (80-100); NEUTROPHILS ABSOLUTE AUTO 6.51 K/mm3 (1.96-9.15); NEUTROPHILS PERCENT AUTO 72 % (41-73); NRBC ABSOLUTE 0.00 K/mm3 (0.00-0.02); NRBC Auto 0.0 /100 WBC (0.0-0.2); Platelet Count 232 K/mm3 (150-400); RDW Coefficient Variation 12.5 % (11.7-14.2); RDW Standard Deviation 40.9 fL (35.1-46.3)
[2024-09-21 17:35] LABS: Alanine Aminotransfer (ALT/SGP 28.0 U/L (12-78); Albumin, Blood 3.4 g/dL (3.4-5.0); Albumin/Globulin Ratio 1.0 (0.8-1.8); Anion Gap 7.0 mmol/L (3-11); Aspartate Aminotrans (AST/SGOT 15.0 U/L (12-37); Bilirubin, Total 0.3 mg/dL (0.1-1.0); Blood Urea Nitrogen 15.0 mg/dL (8-24); CO2, Blood 29.0 mmol/L (21-32); Calcium, Blood 8.7 mg/dL (8.5-10.1); Chloride, Blood 105.0 mmol/L (98-108); Creatinine, Blood 0.84 mg/dL (0.60-1.20); Globulin, Blood 3.5 g/dL (2.2-4.0); Glucose, Blood 248.0 mg/dL (70-99); Potassium, Blood 3.8 mmol/L (3.5-5.5); Sodium, Blood 137.0 mmol/L (136-145); Total Protein, Blood 6.9 g/dL (6.4-8.2)
== END | disposition home or self-care (01) ==
LOC: LAB 14:42 → LAB SHORT 14:42
PROVIDERS: Family Medicine
DX: E11.42 Type 2 diabetes mellitus with diabetic polyneuropathy (principal); I10 Essential (primary) hypertension; Z79.4 Long term (current) use of insulin
CPT/HCPCS: 80053; 83036; 85025

== ENCOUNTER → 2025-01-01 | Outpatient (CLI) | payer OTHER ==
[2025-01-01 17:56] LABS: BASOPHILS ABSOLUTE AUTO 0.01 K/mm3 (0.00-0.23); BASOPHILS PERCENT AUTO 0 % (0-2); EOSINOPHILS ABSOLUTE AUTO 0.15 K/mm3 (0.00-0.68); EOSINOPHILS PERCENT AUTO 2 % (0-6); Hematocrit 40.5 % (37.0-53.0); Hemoglobin 13.5 g/dL (13.5-17.5); IMMATURE GRAN ABSOLUTE AUTO 0.02 K/mm3 (0.00-0.10); IMMATURE GRAN PERCENT AUTO 0 % (0-1); LYMPHOCYTES ABSOLUTE AUTO 1.56 K/mm3 (0.84-5.20); LYMPHOCYTES PERCENT AUTO 20 % (21-46); MONOCYTES ABSOLUTE AUTO 0.66 K/mm3 (0.16-1.47); MONOCYTES PERCENT AUTO 8 % (4-13); Mean Corpuscular HGB Conc 33.3 g/dL (31.5-36.5); Mean Corpuscular Volume 90 fL (80-100); NEUTROPHILS ABSOLUTE AUTO 5.56 K/mm3 (1.96-9.15); NEUTROPHILS PERCENT AUTO 70 % (41-73); NRBC ABSOLUTE 0.00 K/mm3 (0.00-0.02); NRBC Auto 0.0 /100 WBC (0.0-0.2); Platelet Count 144 K/mm3 (150-400); RDW Coefficient Variation 13.2 % (11.7-14.2); RDW Standard Deviation 43.6 fL (35.1-46.3)
[2025-01-01 18:21] LABS: Alanine Aminotransfer (ALT/SGP 31 U/L (12-78); Albumin, Blood 3.9 g/dL (3.4-5.0); Albumin/Globulin Ratio 1.4 (0.8-1.8); Anion Gap 4 mmol/L (3-11); Aspartate Aminotrans (AST/SGOT 19 U/L (12-37); Bilirubin, Total 0.4 mg/dL (0.1-1.0); Blood Urea Nitrogen 13 mg/dL (8-24); CHOL/HDL RATIO 3.5; CO2, Blood 32 mmol/L (21-32); Calcium, Blood 8.7 mg/dL (8.5-10.1); Chloride, Blood 106 mmol/L (98-108); Cholesterol 173 mg/dL (50-200); Creatinine, Blood 0.82 mg/dL (0.60-1.20); Globulin, Blood 2.8 g/dL (2.2-4.0); Glucose, Blood 104 mg/dL (70-99); HDL Cholesterol 50 mg/dL (>39); LDL/HDL RATIO 2.0; Low Density Lipoprotein Chol 99 mg/dL (0-110); Potassium, Blood 3.8 mmol/L (3.5-5.5); Sodium, Blood 138 mmol/L (136-145); Total Protein, Blood 6.7 g/dL (6.4-8.2); Triglycerides 119 mg/dL (30-160); Very Low Density Lipoprot Chol 23 mg/dL (6-32)
== END ==
LOC: LAB SHORT 16:21 → LAB 16:21
PROVIDERS: Family Medicine
DX: I10 Essential (primary) hypertension (principal); E78.2 Mixed hyperlipidemia
CPT/HCPCS: 80053; 80061; 85025